=== PATIENT | male | born 1955 | race Caucasian/White ===

== ENCOUNTER → 2021-09-16 | Outpatient (CLI) | payer MEDICARE, OTHER ==
[~2021-09-16] MED LIST: ATORVASTATIN CA20 MG PO; BRILINTA 90 MG90 MG PO; DIABETA 5 MG TAB5 MG PO; ECOTRIN81 MG PO; HYDROCODON-ACE1 EAC4 PO; LANTUS100 UNIT/1 SQ; LIPITOR TAB 1010 MG PO; LISINOPRIL20 MG PO; NORVASC 5 MG TAB5 MG PO; PROTONIX40 MG PO; SYNTHROID100 MCG PO; TOPROL XL50 MG PO; TRADJENTA5 MG PO
== END ==
LOC: HEART 5 13:17
DX: I25.10 Atherosclerotic heart disease of native coronary artery without angina pectoris (principal); I10 Essential (primary) hypertension; R06.02 Shortness of breath; I08.3 Combined rheumatic disorders of mitral, aortic and tricuspid valves
CPT/HCPCS: 93306